=== PATIENT | male | born 1980 | race Caucasian/White ===

== ENCOUNTER 2018-02-13 19:00 | Emergency (ER) | payer SELFPAY ==
[~2018-02-13] VITALS: Ht 175.3 cm; Wt 82.0 kg
[~2018-02-13 19:00] MED LIST: Z.0.NO CURRENT MEDS
[2018-02-13 19:20] VITALS: BP 123/64; PULSE 94; RESP 16; TEMP 98; O2SAT 98
[2018-02-13 20:17] VITALS: BP 127/69; PULSE 81; RESP 18; O2SAT 99
[2018-02-13] MEDS ORDERED: SODIUM CHLOR 0.9% 1000 ML INJ 1,000 ML IV ONE (20:30)
[2018-02-13] MEDS ORDERED: SODIUM CHLORIDE 0.9% FLUSH 10 ML FLUSH IVF PRN (20:30)
--- NOTE | 2018-02-13 20:37 | PD ---
HPI Chief Complaint: Seizure Time Seen by Provider: 20:12 (Antonina Cordero) Time Seen by Provider: 20:13 (Paul Mobley MD) Travel History International Travel<30 days: No Contact w/Intl Traveler<30days: No Traveled to known affect area: No (Antonina Cordero) History of Present Illness HPI 37-year-old male presents the ED for evaluation of witnessed seizure. Patient' s girlfriend at bedside states that she witnessed multiple seizures over the last 24 hours. States that the patient's eyes rolled back in the head and the patient stiffens. These episodes last a few moments before resolving. Patient seems confused for a period of time but gradually returns to normal per her report. She endorses similar episodes in the past but came today because they seem to be getting more frequent. The patient states that the last thing he remembers was about 24 hours ago, working in his garage. He has no memory of these episodes. He complains of 7/10 left-sided temporal headache with photophobia and occasional blurred vision. No alleviating or exacerbating factors reported. He endorses occasional left-sided chest pain with palpitations. He is unable to further characterize this. He denies fever, chills, cold or flu symptoms, abdominal pain, nausea, vomiting, dysuria, weakness of the extremities. Denies family history of seizure. Endorses distant history of head trauma. Denies formal diagnosis of psychiatric disorder. Girlfriend at bedside states that she feels the patient has PTSD from his time in [place]. Patient states that he is only here because his girlfriend insisted that he come. No treatment attempted at home. (Antonina Cordero) [facility] Past Medical History Medical History: Denies Significant Hx Asthma: Yes Tetanus Vaccination: Unknown Influenza Vaccination: No (Antonina Cordero) Social History Alcohol Use: Yes (2 BEERS/WEEK) Tobacco Use: Yes (1/2 PPD) Substance Use: No (Antonina Cordero) Allergies-Medications (Allergen,Severity, Reaction): Uncoded Allergies: STEROID INHALER (Allergy, Severe, 07/08/07) Reported Meds & Prescriptions Reported Meds & Active Scripts Active No Active Prescriptions or Reported Medications (Paul Mobley MD) Review of Systems ROS Limitations: Uncooperative Except as stated in HPI: all other systems reviewed are Neg (Antonina Cordero) Physical Exam Exam Limitations: Uncooperative Narrative GENERAL: Well-nourished, well-developed athletically build white male in no acute distress. SKIN: Focused skin assessment warm/dry. Multiple tattoos noted. HEAD: Normocephalic. EYES: No scleral icterus. No injection or drainage. Patient recoils from light testing of the pupils. EOMI. NECK: Supple, trachea midline. No JVD or lymphadenopathy. CARDIOVASCULAR: Regular rate and rhythm without murmurs, gallops, or rubs. RESPIRATORY: Breath sounds clear and equal bilaterally. No accessory muscle use. GASTROINTESTINAL: Abdomen soft, non-tender, nondistended. Active bowel sounds. MUSCULOSKELETAL: No cyanosis, or edema. Walks with a normal gait. Moves extremities spontaneously. NEUROLOGICAL: Awake and alert. Cranial nerves II through XII intact. Motor and sensory grossly within normal limits. Five out of 5 muscle strength in all muscle groups. Normal speech. No pronator drift. BACK: Nontender without obvious deformity. No CVA tenderness. (Antonina Cordero) Data Data Last Documented VS Vital Signs Date Time Temp Pulse Resp B/P (MAP) Pulse Ox O2 Delivery O2 Flow Rate FiO2 02/13/18 22:26 78 18 118/78 (91) 98 Room Air 02/13/18 19:20 98.0 (Paul Mobley MD) Orders Orders Complete Blood Count With Diff (02/13/18 20:30) Alcohol (Ethanol) (02/13/18 20:30) Drug Screen, Random Urine (02/13/18 20:30) Electrocardiogram (02/13/18 ) Ct Brain W/O Iv Contrast(Rout) (02/13/18 ) Blood Glucose (02/13/18 20:30) Ecg Monitoring (02/13/18 20:30) Iv Access Insert/Monitor (02/13/18 20:30) Oximetry (02/13/18 20:30) Comprehensive Metabolic Panel (02/13/18 20:30) Sodium Chlor 0.9% 1000 Ml Inj (Ns 1000 M (02/13/18 20:30) Sodium Chloride 0.9% Flush (Ns Flush) (02/13/18 20:30) Ua Includes Microscopic (02/13/18 20:30) Troponin I (02/13/18 20:30) Ed Discharge Order (02/14/18 00:02) (Paul Mobley MD) Labs Laboratory Tests Test 02/13/18 20:44 02/13/18 22:37 White Blood Count 10.0 TH/MM3 Red Blood Count 4.64 MIL/MM3 Hemoglobin 14.7 GM/DL Hematocrit 43.7 % Mean Corpuscular Volume 94.1 FL Mean Corpuscular Hemoglobin 31.7 PG Mean Corpuscular Hemoglobin Concent 33.7 % Red Cell Distribution Width 13.8 % Platelet Count 261 TH/MM3 Mean Platelet Volume 7.8 FL Neutrophils (%) (Auto) 66.7 % Lymphocytes (%) (Auto) 25.3 % Monocytes (%) (Auto) 5.1 % Eosinophils (%) (Auto) 1.5 % Basophils (%) (Auto) 1.4 % Neutrophils # (Auto) 6.7 TH/MM3 Lymphocytes # (Auto) 2.5 TH/MM3 Monocytes # (Auto) 0.5 TH/MM3 Eosinophils # (Auto) 0.1 TH/MM3 Basophils # (Auto) 0.1 TH/MM3 CBC Comment DIFF FINAL Differential Comment Blood Urea Nitrogen 20 MG/DL Creatinine 1.28 MG/DL Random Glucose 93 MG/DL Total Protein 7.0 GM/DL Albumin 3.6 GM/DL Calcium Level 8.8 MG/DL Alkaline Phosphatase 56 U/L Aspartate Amino Transf (AST/SGOT) 13 U/L Alanine Aminotransferase (ALT/SGPT) 21 U/L Total Bilirubin 0.2 MG/DL Sodium Level 141 MEQ/L Potassium Level 4.2 MEQ/L Chloride Level 106 MEQ/L Carbon Dioxide Level 25.9 MEQ/L Anion Gap 9 MEQ/L Estimat Glomerular Filtration Rate 63 ML/MIN Troponin I LESS THAN 0.02 NG/ML Ethyl Alcohol Level LESS THAN 3 MG/DL Urine Color YELLOW Urine Turbidity CLEAR Urine pH 5.5 Urine Specific [place] 1.022 Urine Protein NEG mg/dL Urine Glucose (UA) NEG mg/dL Urine Ketones NEG mg/dL Urine Occult Blood NEG Urine Nitrite NEG Urine Bilirubin NEG Urine Urobilinogen LESS THAN 2.0 MG/DL Urine Leukocyte Esterase NEG Urine RBC 2 /hpf Urine WBC 3 /hpf Urine Bacteria RARE /hpf Urine Mucus FEW /lpf Urine Opiates Screen NEG Urine Barbiturates Screen NEG Urine Amphetamines Screen POS Urine Benzodiazepines Screen NEG Urine Cocaine Screen NEG Urine Cannabinoids Screen NEG (Paul Mobley MD) MDM Medical Decision Making Medical Screen Exam Complete: Yes Emergency Medical Condition: Yes Differential Diagnosis Pseudoseizure versus seizure versus migraine versus metabolic derangement versus ICH versus other Narrative Course 37-year-old male presents the ED for evaluation of witnessed seizure. Patient' s girlfriend at bedside states that she witnessed multiple seizures over the last 24 hours. States that the patient's eyes rolled back in the head and the patient stiffens. These episodes last a few moments before resolving. Patient states that he is only here because his girlfriend insisted that he come. He endorses left-sided headache. Vitals reviewed. On exam patient is not postictal. No focal neuro deficits. He is uncooperative to exam and history taking, agitated that he is now allowed to eat. IV was established. Patient was administered 1 L normal saline. EKG rate 75, sinus rhythm. HI interval 187, QRS 93, QTC 397 ms. Normal axis. No acute ST changes. Reviewed by Dr. Mobley. Cardiac enzymes negative 1. Head CT: Negative noncontrast CT brain. CBC, CMP, UA without concerning abnormalities. Tox screen positive for amphetamines. On recheck patient reports resolution of his headache. I discussed the results of the workup with the patient. States he has been having similar episodes since June. He states that he prefers outpatient evaluation of this issue. I doubt true tonic-clonic seizures, possible pseudoseizure, possibly related to substance abuse. He is provided with information for the [facility], instructed to follow-up with the neurologist, return for worsening symptoms. He is stable and discharged home. (Antonina Cordero) Diagnosis Primary Impression: Witnessed seizure-like activity Referrals: [facility] Neurologist Additional Instructions: Follow-up with the [facility] and neurologist as discussed. Return to the ED for worsening symptoms or any urgent or emergent medical condition. Scripts No Active Prescriptions or Reported Meds Disposition: 01 DISCHARGE HOME Condition: Stable nAtonina Cordero February 13, 2018 20:37 Paul Mobley MD February 14, 2018 00:04
[2018-02-13 20:51] VITALS: O2SAT 99
[2018-02-13 21:06] LABS: AUTOMATED NEUTROPHIL # 6.7 TH/MM3 (1.8-7.7); BASOPHIL # 0.1 TH/MM3 (0-0.2); BASOPHIL % 1.4 % (0.0-2.0); EOSINOPHIL # 0.1 TH/MM3 (0-0.4); EOSINOPHIL % 1.5 % (0.0-4.0); HEMATOCRIT 43.7 % (39.0-51.0); HEMOGLOBIN 14.7 GM/DL (13.0-17.0); LYMPH % 25.3 % (9.0-44.0); LYMPHOCYTE # 2.5 TH/MM3 (1.0-4.8); MEAN CELL VOLUME 94.1 FL (80.0-100.0); MEAN CORPUSCULAR HEMOGLOBIN 31.7 PG (27.0-34.0); MEAN CORPUSCULAR HGB CONC 33.7 % (32.0-36.0); MEAN PLATELET VOLUME 7.8 FL (7.0-11.0); MONO % 5.1 % (0.0-8.0); MONOCYTE # 0.5 TH/MM3 (0-0.9); NEUT % 66.7 % (16.0-70.0); PLATELET COUNT 261 TH/MM3 (150-450); RED BLOOD COUNT 4.64 MIL/MM3 (4.50-5.90); RED CELL DISTRIBUTION WIDTH 13.8 % (11.6-17.2)
[2018-02-13 21:33] LABS: ALBUMIN 3.6 GM/DL (3.4-5.0); AST (GOT) 13 U/L (15-37); BICARBONATE 25.9 MEQ/L (21.0-32.0); BLOOD UREA NITROGEN 20 MG/DL (7-18); CALCIUM 8.8 MG/DL (8.5-10.1); CHLORIDE 106 MEQ/L (98-107); CREATININE 1.28 MG/DL (0.60-1.30); GLOMERULAR FILTRATION RATE 63 ML/MIN (>89); GLUCOSE,RANDOM 93 MG/DL (74-106); SODIUM (NA) 141 MEQ/L (136-145)
[2018-02-13 21:34] LABS: ALT (GPT) 21 U/L (12-78)
[2018-02-13 21:38] LABS: ALKALINE PHOSPHATASE 56 U/L (45-117); TOTAL BILIRUBIN ADULT 0.2 MG/DL (0.2-1.0); TROPONIN I LESS THAN 0.02 NG/ML (0.02-0.05)
--- NOTE | 2018-02-13 21:48 | RADRPT ---
EXAM DATE: 02/13/2018 9:44 PM EDT AGE/SEX: 37 years / Male INDICATIONS: Cephalgia; seizure. CLINICAL DATA: This is the patient's initial encounter. Patient reports that signs and symptoms have been present for 3 days and indicates a pain score of 3/10. MEDICAL/SURGICAL HISTORY: None. None. RADIATION DOSE: 39.13 CTDI (mGy) COMPARISON: No prior [facility] exams available for comparison. TECHNIQUE: CT of the head without contrast. Using automated exposure control and adjustment of the mA and/or kV according to patient size, radiation dose was kept as low as reasonably achievable to ob tain optimal diagnostic quality images. FINDINGS: Cerebrum: The ventricles are normal for age. No evidence of midline shift, mass lesion, hemorrhage or acute infarction. No extraaxial fluid collections are seen. Posterior Fossa: The cerebellum and brainstem are intact. The 4th ventricle is midline. The cerebe llopontine angle is unremarkable. Extracranial: The visualized portion of the orbits is intact. Skull: The calvaria is intact. No evidence of skull fracture. CONCLUSION: 1. Negative non-contrast CT brain. Electronically signed by: Kings Matos MD 02/13/2018 9:47 PM EDT
[2018-02-13 22:26] VITALS: BP 118/78; PULSE 78; RESP 18; O2SAT 98
[2018-02-13 22:57] LABS: BACTERIA, URINE RARE /hpf; BILIRUBIN, URINE NEG (NEG); BLOOD, URINE NEG (NEG); GLUCOSE,URINE NEG (NEG); KETONE, URINE NEG (NEG); MUCUS URINE FEW /lpf (OCC); NITRITE,URINE NEG (NEG); PH, URINE 5.5 (5.0-8.5); URINE COLOR YELLOW (YELLW/STRAW); URINE LEUKOCYTE ESTERASE NEG (NEG)
--- NOTE | 2018-02-15 08:16 | EKG ---
Date Performed: 02/13/2018 Time Performed: 20:49:06 PTAGE: 37 years EKG: Sinus rhythm POSSIBLE RIGHT VENTRICULAR CONDUCTION DELAY BORDERLINE ECG NO PREVIOUS TRACING DOCTOR: Jonathon Barrera Interpretating Date/Time 02/15/2018 08:12:57
== END 2018-02-14 00:16 | disposition home or self-care (01) ==
LOC: NEPE 19:00
DX: R56.9 Unspecified convulsions (principal); R51 Headache; R07.9 Chest pain, unspecified; F17.200 Nicotine dependence, unspecified, uncomplicated
CPT/HCPCS: 70450; 80053; 80307; 81001; 84484; 85025; 93005; 96360; 99285; J7030